=== PATIENT | female | born 1950 | race Caucasian/White ===

== ENCOUNTER 2016-07-23 13:14 | Emergency (ER) | payer OTHER ==
[~2016-07-23] VITALS: Ht 154.9 cm; Wt 46.7 kg
[2016-07-23 13:19] VITALS: BP 115/70; PULSE 93; RESP 16; TEMP 98.6; O2SAT 96
[2016-07-23] MEDS ORDERED: CLON0.5T PO (13:33)
[2016-07-23] MEDS ORDERED: antidepressants (13:33)
[2016-07-23 13:35] VITALS: BP 115/70; PULSE 93; RESP 16; TEMP 98.6; O2SAT 96
[2016-07-23] MEDS ORDERED: CYCL1TAB29 PO (13:39)
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
== END 2016-07-23 13:57 | disposition home or self-care (01) ==
LOC: PHEFT 13:14
DX: S16.1XXA Strain of muscle, fascia and tendon at neck level, initial encounter (principal); S29.012A Strain of muscle and tendon of back wall of thorax, initial encounter; M62.830 Muscle spasm of back; M62.838 Other muscle spasm; Z86.59 Personal history of other mental and behavioral disorders; V49.88XA Car occupant (driver) (passenger) injured in other specified transport accidents, initial encounter; Y92.410 Unspecified street and highway as the place of occurrence of the external cause
CPT/HCPCS: 99283

== ENCOUNTER 2016-07-26 13:28 | Emergency (ER) | payer OTHER ==
[~2016-07-26] VITALS: Ht 156.2 cm; Wt 46.8 kg
[~2016-07-26 13:28] MED LIST: CLON0.5T PO; CYCL1TAB29 PO; antidepressants
[2016-07-26 13:36] VITALS: BP 96/59; PULSE 101; RESP 18; TEMP 99; O2SAT 99
[2016-07-26] MEDS ORDERED: MIRT45TA PO (13:48)
[2016-07-26] MEDS ORDERED: LEXA20TA PO (13:48)
[2016-07-26] MEDS ORDERED: LEVO.05 PO (13:48)
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
--- NOTE | 2016-07-26 14:11 | RADHPO ---
EXAM DATE/TIME: 07/26/2016 13:56 [facility] COMPARISON: No previous studies available for comparison. INDICATIONS : Right shoulder pain. MEDICAL HISTORY : None. SURGICAL HISTORY : None. ENCOUNTER: Initial ACUITY: 1 day PAIN SCORE: 4/10 LOCATION: Right superior shoulder FINDINGS: Multiple view examination of the right shoulder demonstrates no evidence of fracture or dislocation. The glenohumeral and acromioclavicular joints are maintained. There is normal range of motion betwe en internal and external rotation. Bony mineralization is normal. CONCLUSION: Negative examination Jae Reno MD on July 26, 2016 at 14:09 Board Certified Radiologist. This report was verified electronically.
[2016-07-26] MEDS ORDERED: ROBA500T PO (14:14)
== END 2016-07-26 14:22 | disposition home or self-care (01) ==
LOC: PHEFT 13:28
DX: S46.911A Strain of unspecified muscle, fascia and tendon at shoulder and upper arm level, right arm, initial encounter (principal); Y93.9 Activity, unspecified; Y92.9 Unspecified place or not applicable; Y99.9 Unspecified external cause status; V89.2XXD Person injured in unspecified motor-vehicle accident, traffic, subsequent encounter
CPT/HCPCS: 73030; 99283